=== PATIENT | female | born 1935 | race Two or more races ===

== ENCOUNTER 2016-11-07 00:15 | Inpatient (IN) | payer MEDICARE, OTHER ==
[2016-11-07] VITALS (9 sets, daily range): BP systolic 125–167; BP diastolic 67–93
[2016-11-07] MEDS ORDERED: ZOLPIDEM TARTRATE 5 MG TABLET PO PRN (04:00)
[2016-11-07] MEDS ORDERED: MAGNESIUM HYDROXIDE 30 ML UDC PO PRN (04:00)
[2016-11-07] MEDS ORDERED: MAG HYDROX/AL HYDROX/SIMETH 30 ML UDC PO PRN (04:00)
[2016-11-07] MEDS ORDERED: Z GUARD REMEDY 2 OZ OINT TP PRN (04:00)
[2016-11-07] MEDS ORDERED: ACETAMINOPHEN 325 MG TABLET PO PRN (04:00)
[2016-11-07] MEDS ORDERED: HYDROCODONE/APAP 5/325MG 1 EACH TABLET PO PRN (04:00)
[2016-11-07] MEDS ORDERED: ONDANSETRON HCL/PF 4 MG/2 ML VIAL IVP PRN (04:00)
[2016-11-07 08:49] LABS: THYROID STIMULATING HORMONE 0.758 uIU/mL (0.358-3.74)
[2016-11-07] MEDS: LISINOPRIL (20MG) 20 MG TABLET PO SCH (13:20)
[2016-11-07] MEDS: MELOXICAM 7.5 MG TABLET PO SCH (13:20)
[2016-11-08 07:51] LABS: BASOPHILS % (AUTO) 0.6 % (0.0-2.0); DIFF TOTAL % 100 %; EOSINOPHILS # (AUTO) 0.1 /CMM (0.0-0.7); EOSINOPHILS % (AUTO) 2.3 % (0.0-6.0); HEMATOCRIT 39 % (33-45); LYMPHOCYTES # (AUTO) 1.6 /CMM (0.8-4.8); LYMPHOCYTES % (AUTO) 27.8 % (20.0-44.0); MEAN CORPUSCULAR HEMOGLOBIN 30 PG (26.0-33.0); MEAN CORPUSCULAR HGB CONC 33 g/dl (31.0-36.0); MEAN CORPUSCULAR VOLUME 91 fL (82-100); MONOCYTES # (AUTO) 0.7 /CMM (0.1-1.30); MONOCYTES % (AUTO) 11.6 % (2.0-12.0); NEUTROPHILS # (AUTO) 3.3 /CMM (1.8-8.9); NEUTROPHILS % (AUTO) 57.7 % (43.0-81.0); PLATELET COUNT (AUTO) 218 /CMM (150-450); RED BLOOD CELL COUNT(AUTO) 4.29 MIL/uL (4.0-5.2); WHITE BLOOD COUNT (AUTO) 5.7 K/uL (4.3-11.0)
[2016-11-08 08:00] VITALS: BP 151/74
[2016-11-08 08:14] LABS: CALCIUM, SERUM 9.1 mg/dL (8.5-10.1); CREATININE 0.8 mg/dL (0.6-1.3); PHOSPHORUS 4.6 mg/dL (2.5-4.9); POTASSIUM 4.3 mmol/L (3.5-5.1)
[2016-11-08] MEDS: LISINOPRIL (20MG) 20 MG TABLET PO SCH (08:34)
[2016-11-08] MEDS: MELOXICAM 7.5 MG TABLET PO SCH (08:34)
[2016-11-08] MEDS ORDERED: AMLODIPINE BESYLATE 5 MG TABLET PO SCH (09:30)
[2016-11-08 09:48] VITALS: BP 151/74
[2016-11-08] MEDS ORDERED: AMLO5TAB2 PO (11:37)
[2016-11-08] MEDS ORDERED: LISI20TA61 PO (11:37)
== END 2016-11-08 14:41 | disposition home or self-care (01) | DRG 203 ==
LOC: TELE 00:15 → MED 10:10
PROVIDERS: ADMIT Family Medicine; ATTEND Student in an Organized Health Care Education/Training Program
DX: J20.9 Acute bronchitis, unspecified (principal); M17.0 Bilateral primary osteoarthritis of knee; I10 Essential (primary) hypertension; R10.9 Unspecified abdominal pain; M79.602 Pain in left arm; H54.41 Blindness, right eye, normal vision left eye
CPT/HCPCS: 36415; 80048-TC; 80061-TC; 82306; 82728-TC; 83540-TC; 83735-TC; 84100-TC; 84439-TC; 84443-TC; 84484-TC; 85025-TC; 87081-TC; 93307-TC; 97001-TC; Z7610